=== PATIENT | male | born 1995 | race African-American/Black ===

== ENCOUNTER 2023-03-11 17:08 | Inpatient (IN) | payer OTHER ==
[~2023-03-11] VITALS: Ht 177.8 cm; Wt 104.0 kg
[2023-03-11 18:22] LABS: HEMATOCRIT 38.5 % (42.0-52.0); MEAN CORPUSCULAR HEMOGLOBIN 30.5 pg (27.0-33.0); MEAN CORPUSCULAR HGB CONC 33.8 g/dl (32.0-36.5); MEAN CORPUSCULAR VOLUME 90.4 fl (80.0-96.0); PLATELET COUNT, AUTOMATED 217 10^3/uL (150-450); RED BLOOD COUNT 4.26 10^6/uL (4.30-6.10); WHITE BLOOD COUNT 7.2 10^3/uL (4.0-10.0)
[2023-03-11 18:47] LABS: AMPHETAMINES LEVEL URINE NEGATIVE (NEGATIVE); BENZODIAZEPINES URINE NEGATIVE (NEGATIVE)
[2023-03-11 18:48] LABS: BARBITURATES URINE NEGATIVE (NEGATIVE); CANNABINOIDS URINE NEGATIVE (NEGATIVE); COCAINE METABOLITE URINE NEGATIVE (NEGATIVE); METHADONE URINE NEGATIVE (NEGATIVE); OPIATES URINE NEGATIVE (NEGATIVE); PHENCYCLIDINE URINE NEGATIVE (NEGATIVE)
[2023-03-11 18:49] LABS: ACETAMINOPHEN LEVEL < 2.0 UG/ML (10.0-20.0); ALBUMIN 3.7 G/DL (3.2-5.2); ALKALINE PHOSPHATASE 71 U/L (46-116); ALT/SGPT 25 U/L (7.0-40); AST/SGOT 19 U/L (<34); BILIRUBIN,DIRECT 0.1 MG/DL (<0.4); BILIRUBIN,TOTAL 0.4 MG/DL (0.3-1.2); BLOOD UREA NITROGEN 16 MG/DL (9-23); CALCIUM LEVEL 8.6 MG/DL (8.5-10.1); CARBON DIOXIDE LEVEL 29 MMOL/L (20-31); CHLORIDE LEVEL 105 MMOL/L (98-107); CREATININE FOR GFR 1.03 MG/DL (0.70-1.30); GLOMERULAR FILTRATION RATE > 60.0 (>60); GLUCOSE, FASTING 87 MG/DL (60-100); POTASSIUM SERUM 3.9 MMOL/L (3.5-5.1); SALICYLATE LEVEL < 3.0 MG/DL (<30); SODIUM LEVEL 140 MMOL/L (136-145); TOTAL PROTEIN 6.9 G/DL (5.7-8.2)
[2023-03-11 18:52] LABS: THYROID STIMULATING HORMONE 1.572 uIU/ML (0.55-4.78)
[2023-03-11] MEDS ORDERED: IBUP1TAB6 PO (18:55)
[2023-03-11 19:00] LABS: ETHYL ALCOHOL (ETHANOL) < 0.003 % (0.000-0.010)
[2023-03-11] MEDS ORDERED: HOME MED LIST COMPLETE! XX SCH (19:00)
[2023-03-11] MEDS ORDERED: MOM 30ML SUSPENSION UDC PO PRN (23:10)
[2023-03-11] MEDS ORDERED: OLANZapine ORAL DISINTEGRATING TAB 5MG PO PRN (23:10)
[2023-03-11] MEDS ORDERED: ACETAMINOPHEN TAB 650MG DOSE (2X325MG) PO PRN (23:10)
[2023-03-11] MEDS ORDERED: traZODone 50 MG TAB PO PRN (23:10)
[2023-03-11] MEDS ORDERED: MAALOX 30 ML SUSP *UDC PO PRN (23:10)
[2023-03-12 00:57] VITALS: BP 119/74
[2023-03-12 06:40] VITALS: BP 148/97
[2023-03-12] MEDS: SERTRALINE HCL 50 MG TAB PO SCH (11:19)
[2023-03-12 17:40] VITALS: BP 137/89
[2023-03-13 06:48] VITALS: BP 131/78
[2023-03-13] MEDS: SERTRALINE HCL 50 MG TAB PO SCH (09:02)
[2023-03-13 18:19] VITALS: BP 138/92
[2023-03-14 06:33] VITALS: BP 138/90
[2023-03-14] MEDS: SERTRALINE HCL 50 MG TAB PO SCH (09:03)
[2023-03-14 18:00] VITALS: BP 142/89
[2023-03-15 06:10] VITALS: BP 131/88
[2023-03-15] MEDS: SERTRALINE HCL 50 MG TAB PO SCH (08:46)
[2023-03-15 18:00] VITALS: BP 149/90
[2023-03-16 04:00] VITALS: BP 96/55
[2023-03-16] MEDS ORDERED: ONDANSETRON 4MG 2ML VIAL IV PRN (04:20)
[2023-03-16 06:55] VITALS: BP 124/82
[2023-03-16] MEDS: SERTRALINE HCL 50 MG TAB PO SCH (09:22)
[2023-03-16] MEDS ORDERED: SERT50TA29 PO (10:12)
== END 2023-03-16 12:10 | disposition home or self-care (01) | DRG 881 ==
LOC: M ED 17:08 → M ED INP 23:11 → M PSY 03-12 00:34
PROVIDERS: ADMIT Psychiatry & Neurology Psychiatry; ATTEND Student in an Organized Health Care Education/Training Program
DX: F32.A Depression, unspecified (principal); R45.851 Suicidal ideations; F43.21 Adjustment disorder with depressed mood; Z79.899 Other long term (current) drug therapy; Z56.6 Other physical and mental strain related to work; Z56.2 Threat of job loss